=== PATIENT | male | born 1970 | race Caucasian/White ===

== ENCOUNTER → 2022-06-28 | Outpatient (REF) | LOC: M PLAIMG 10:41 | PROVIDERS: ATTEND Internal Medicine | DX: M25.531 Pain in right wrist (principal); M79.631 Pain in right forearm ==

== ENCOUNTER → 2022-12-27 | Outpatient (REF) | LOC: M PLAIMG 13:33 | PROVIDERS: ATTEND Internal Medicine | DX: R52 Pain, unspecified (principal) ==